=== PATIENT | male | born 1985 | race Asian ===

== ENCOUNTER 2023-11-13 14:25 | Emergency (ER) | payer BC ==
[~2023-11-13] VITALS: Ht 177.8 cm; Wt 74.8 kg
[2023-11-13 14:56] VITALS: BP_SYST 131; PULSE 88; RESP 16; TEMP 98.4; O2SAT 98
[2023-11-13] MEDS: KETOROLAC TROMETHAMINE 60 MG/2 ML VIAL IM ONE (17:01)
[2023-11-13] MEDS ORDERED: DICL20GE TP (17:54)
[2023-11-13] MEDS ORDERED: DICL75TA5 PO (17:54)
[2023-11-13 19:36] VITALS: BP_SYST 131; PULSE 88; RESP 16; TEMP 98.4; O2SAT 98
== END 2023-11-13 18:03 | disposition home or self-care (01) ==
LOC: SED 14:25
DX: M76.61 Achilles tendinitis, right leg (principal); E79.0 Hyperuricemia without signs of inflammatory arthritis and tophaceous disease; Z79.899 Other long term (current) drug therapy
CPT/HCPCS: 99283; 84550; 36415; 96372; J1885